=== PATIENT | male | born 1935 | race Caucasian/White ===

== ENCOUNTER 2019-01-19 06:58 | Day surgery (SDC) | payer BC, MEDICARE ==
[2019-01-19] MEDS ORDERED: Lactated Ringers 1,000 ML IV SCH (07:30)
[2019-01-19] MEDS ORDERED: Propofol 200 MG/20 ML SDV ONE (07:58)
[2019-01-19] MEDS ORDERED: fentaNYL 100 MCG/2 ML SDV ONE (07:58)
[2019-01-19] MEDS ORDERED: Midazolam 1 MG/ML 2 ML SDV ONE (07:58)
--- NOTE | 2019-01-19 10:44 | OR ---
DATE OF PROCEDURE: 01/19/2019 PREOPERATIVE DIAGNOSIS: History of colon polyps. POSTOPERATIVE DIAGNOSES: Diverticulosis, two small colon polyps, history of colon polyps. PROCEDURE PERFORMED: Colonoscopy to the cecum with biopsy resection of small hepatic flexure and small transverse colon polyps. SURGEON: Lino Espinoza MD ANESTHESIA: IV anesthesia with monitored anesthesia care. INDICATION: This 83-year-old white male is referred for a colonoscopy. He has a history of precancerous polyps. His last colonoscopic exam was done 3 years ago. I counseled him for the procedure, including risks and alternatives, and he gave his informed consent to proceed. DESCRIPTION OF PROCEDURE: The patient was placed in the left lateral decubitus position. IV anesthesia was administered by the Anesthesia Service. Time-out was held. A rectal exam was performed, which was unremarkable. The flexible video Olympus colonoscope was introduced through his anus, up his rectum, and out his colon all the way to the cecum. En route, we saw multiple left-sided diverticula. There was no bleeding or inflammation associated with any of them. Additionally, at the hepatic flexure, we saw a small polyp which was removed with a couple of bites of the biopsy forceps. Once the cecum was reached, the scope was slowly withdrawn examining the mucosa throughout. In the transverse colon, we saw another small polyp, which was removed with the biopsy forceps. No other neoplastic lesions were seen. The scope was brought back into the rectum, where it was retroflexed. The distal rectum appeared unremarkable except for some minor hemorrhoidal tissue. The scope was straightened and removed. He tolerated the procedure well. Lino Espinoza MD /[id number] MTDD
== END 2019-01-19 10:15 | disposition home or self-care (01) ==
LOC: JP.SDS 06:58
PROVIDERS: ATTEND Surgery
DX: Z12.11 Encounter for screening for malignant neoplasm of colon (principal); D12.3 Benign neoplasm of transverse colon; K57.30 Diverticulosis of large intestine without perforation or abscess without bleeding; K64.9 Unspecified hemorrhoids; J44.9 Chronic obstructive pulmonary disease, unspecified; N18.3 Chronic kidney disease, stage 3 (moderate); Z86.010 Personal history of colon polyps
CPT/HCPCS: 45380; 88305; J2250; J2704; J3010; J7120

== ENCOUNTER 2021-11-23 06:50 | Day surgery (SDC) | payer MEDICARE ==
[2021-11-23] MEDS ORDERED: Propofol 200 MG/20 ML SDV ONE (07:17)
[2021-11-23] MEDS ORDERED: fentaNYL 100 MCG/2 ML SDV ONE (07:17)
[2021-11-23 07:43] LABS: CORONAVIRUS COVID-19 NAA NEGATIVE (NEGATIVE)
[2021-11-23] MEDS: Sodium Chloride 0.9% 1,000 ML IV SCH (07:57)
== END 2021-11-23 10:02 | disposition home or self-care (01) ==
LOC: JP.SDS 06:50
PROVIDERS: ATTEND Family Medicine
DX: Z12.11 Encounter for screening for malignant neoplasm of colon (principal); E78.5 Hyperlipidemia, unspecified; I12.9 Hypertensive chronic kidney disease with stage 1 through stage 4 chronic kidney disease, or unspecified chronic kidney disease; N18.30 Chronic kidney disease, stage 3 unspecified; K21.9 Gastro-esophageal reflux disease without esophagitis; Z86.010 Personal history of colon polyps; Z79.899 Other long term (current) drug therapy; Z01.812 Encounter for preprocedural laboratory examination; Z20.822 Contact with and (suspected) exposure to COVID-19
CPT/HCPCS: 0241U; J2704; J3010; J7030

== ENCOUNTER 2022-03-06 07:00 | Day surgery (SDC) | payer MEDICARE ==
[2022-03-06] MEDS ORDERED: Propofol 200 MG/20 ML SDV ONE (07:14)
[2022-03-06] MEDS ORDERED: Lactated Ringers 1,000 ML IV SCH (08:00)
[2022-03-06 09:40] VITALS: PULSE 62
[2022-03-06 09:58] VITALS: BP 157/71
[2022-03-06] MEDS ORDERED: Calcium Carbonate 500 MG Tab.Chew PO ONE (10:00)
== END 2022-03-06 10:18 | disposition home or self-care (01) ==
LOC: JP.SDS 07:00
PROVIDERS: ATTEND Hospitalist
DX: D12.2 Benign neoplasm of ascending colon (principal); K57.30 Diverticulosis of large intestine without perforation or abscess without bleeding; I12.9 Hypertensive chronic kidney disease with stage 1 through stage 4 chronic kidney disease, or unspecified chronic kidney disease; N18.30 Chronic kidney disease, stage 3 unspecified; Z88.8 Allergy status to other drugs, medicaments and biological substances; Z88.6 Allergy status to analgesic agent; Z85.038 Personal history of other malignant neoplasm of large intestine; Z80.0 Family history of malignant neoplasm of digestive organs; Z79.810 Long term (current) use of selective estrogen receptor modulators (SERMs); Z79.83 Long term (current) use of bisphosphonates
CPT/HCPCS: A9270-GY; J2704; J7120

== ENCOUNTER 2024-01-22 21:14 | Inpatient (IN) | payer MEDICARE ==
[2024-01-22 22:14] LABS: BASOPHILS ABSOLUTE AUTO 0.04 K/uL (0.00-0.10); BASOPHILS PERCENT AUTO 0.3 % (0.1-1.3); HEMATOCRIT 37.4 % (38.4-49.7); HEMOGLOBIN 13.4 g/dL (12.9-16.9); IMMATURE GRAN ABSOLUTE AUTO 0.06 K/uL (0.00-0.23); IMMATURE GRAN PERCENT AUTO 0.4 % (0.0-0.7); LYMPHOCYTES ABSOLUTE AUTO 0.45 K/uL (0.8-3.3); LYMPHOCYTES PERCENT AUTO 3.1 % (11.4-47.7); MEAN CORPUSCULAR HEMOGLOBIN 32.4 pg (31.6-35.5); MEAN CORPUSCULAR HGB CONC 35.8 g/dL (31.6-35.5); MEAN CORPUSCULAR VOLUME 90.6 fL (81.4-99.0); MONOCYTES ABSOLUTE AUTO 1.21 K/uL (0.20-0.90); MONOCYTES PERCENT AUTO 8.4 % (3.3-12.6); NEUTROPHILS ABSOLUTE AUTO 12.67 K/uL (1.0-7.6); NEUTROPHILS PERCENT AUTO 87.8 % (40.0-78.1); PLATELET COUNT,PLT 154 K/uL (130-375); RED BLOOD CELL COUNT 4.13 M/uL (4.14-5.76); WHITE BLOOD CELL COUNT,WBC 14.4 K/uL (3.2-11.0)
[2024-01-22 22:32] LABS: C-REACTIVE PROTEIN 24.26 mg/dL (<0.50); CALCIUM 9.2 mg/dL (8.5-10.1); CREATININE 2.1 mg/dL (0.8-1.3); EST CRCL DRUG DOSING (CG) 26.07 mL/min; POTASSIUM,K 3.5 mmol/L (3.6-5.2)
[2024-01-22 22:36] LABS: ANION GAP 15.5 mmol/L (5.0-14.0)
[2024-01-22] MEDS: Sodium Chloride 0.9% 1,000 ML IV SCH (22:36)
[2024-01-22] MEDS: Acetaminophen 500 MG Tab PO ONE (22:36)
[2024-01-22 22:38] LABS: LACTIC ACID 1.1 mmol/L (0.4-2.0)
[2024-01-22 22:53] LABS: APPEARANCE,URINE CLEAR (CLEAR); BILIRUBIN,URINE NEGATIVE (NEGATIVE); COLOR,URINE YELLOW (YELLOW); GLUCOSE,URINE NEGATIVE (NEGATIVE); KETONES,URINE 15 mg/dL (NEGATIVE); LEUKOCYTE ESTERASE,URINE TRACE (NEGATIVE); NITRITE,URINE NEGATIVE (NEGATIVE); OCCULT BLOOD,URINE MODERATE (NEGATIVE); PH,URINE 5.5 (5.0-8.0); PROTEIN,URINE 30 mg/dL (NEGATIVE); UROBILINOGEN,URINE 0.2 EU/dL (0.2-1.0)
[2024-01-22 22:58] LABS: AMORPHOUS SEDIMENT,URINE NOT SEEN; BACTERIA,URINE FEW; EPITHELIAL CELLS,URINE RARE; MUCUS,URINE FEW; RBC,URINE 0-5 (0-5)
[2024-01-22] MEDS: cefTRIAXone 2 GM in Sodium Chloride 0.9% 50 ML IV ONE (22:58)
[2024-01-23] MEDS: Albuterol/Ipratropium 3.0-0.5 MG/3 ML Neb Soln NEB ONE (00:04)
[2024-01-23] MEDS ORDERED: Ondansetron 4 MG/2 ML SDV IV PRN (00:53)
[2024-01-23] MEDS ORDERED: LORazepam 2 MG/ML SDV IVPUSH PRN (00:53)
[2024-01-23] MEDS ORDERED: Melatonin 3 MG Tab PO PRN (00:53)
[2024-01-23] MEDS ORDERED: Ondansetron 4 MG Tab.DIS PO PRN (00:53)
[2024-01-23] MEDS ORDERED: Sennosides/Docusate Sodium 50-8.6 MG Tab PO PRN (00:53)
[2024-01-23] MEDS ORDERED: Magnesium Hydroxide 400 MG/5 ML Susp 30 ML Cup PO PRN (00:53)
[2024-01-23] MEDS: Albuterol/Ipratropium 3.0-0.5 MG/3 ML Neb Soln ONE (01:07)
[2024-01-23] MEDS: Sodium Chloride 0.9% 1,000 ML IV SCH (01:13)
[2024-01-23 05:37] LABS: HEMATOCRIT 36.5 % (38.4-49.7); HEMOGLOBIN 12.9 g/dL (12.9-16.9); MEAN CORPUSCULAR HEMOGLOBIN 31.9 pg (31.6-35.5); MEAN CORPUSCULAR HGB CONC 35.3 g/dL (31.6-35.5); MEAN CORPUSCULAR VOLUME 90.3 fL (81.4-99.0); RED BLOOD CELL COUNT 4.04 M/uL (4.14-5.76)
[2024-01-23 05:56] LABS: CALCIUM 8.6 mg/dL (8.5-10.1); EST CRCL DRUG DOSING (CG) 27.38 mL/min; POTASSIUM,K 3.2 mmol/L (3.6-5.2)
[2024-01-23 06:15] LABS: ANION GAP 15.2 mmol/L (5.0-14.0)
[2024-01-23] MEDS: Pantoprazole 40 MG Tab.CR PO SCH (08:29)
[2024-01-23] MEDS: Enoxaparin 30 MG/0.3 ML Syringe SUBCUT SCH (08:29)
[2024-01-23] MEDS: Lactobacillus Rhamnosus GG (Probiotic) Cap PO SCH (08:29)
[2024-01-23] MEDS: Potassium Chloride 20 MEQ Tab.ER PO ONE (08:33)
[2024-01-23] MEDS ORDERED: Calcium Carbonate 500 MG Tab.Chew PO PRN (08:39)
[2024-01-23] MEDS: Carbidopa/Levodopa 25-100 MG Tab PO SCH (09:30)
[2024-01-23] MEDS: Aspirin 81 MG Tab.Chew PO SCH (09:30)
[2024-01-23] MEDS ORDERED: Benzonatate 100 MG Cap PO PRN (10:19)
[2024-01-23] MEDS: Azithromycin 250 MG Tab PO SCH (11:33)
[2024-01-23] MEDS: Lidocaine 4% 1 each Patch TOP SCH (12:23)
[2024-01-23] MEDS: Carbidopa/Levodopa 25-100 MG Tab PO ONE (14:09)
[2024-01-23] MEDS: guaiFENesin/Dextromethorphan 100-10 MG/5 ML Soln 10 ML Cup PO PRN (17:03)
[2024-01-23] MEDS: Doxazosin 4 MG Tab PO SCH (21:08)
[2024-01-23] MEDS: cefTRIAXone 1 GM in Sodium Chloride 0.9% 50 ML IV SCH (21:17)
[2024-01-24 05:30] LABS: HEMATOCRIT 32.3 % (38.4-49.7); HEMOGLOBIN 11.3 g/dL (12.9-16.9); MEAN CORPUSCULAR HEMOGLOBIN 31.7 pg (31.6-35.5); MEAN CORPUSCULAR VOLUME 90.7 fL (81.4-99.0); RED BLOOD CELL COUNT 3.56 M/uL (4.14-5.76); WHITE BLOOD CELL COUNT,WBC 5.7 K/uL (3.2-11.0)
[2024-01-24 05:54] LABS: C-REACTIVE PROTEIN 16.35 mg/dL (<0.50); CALCIUM 7.8 mg/dL (8.5-10.1); CREATININE 1.4 mg/dL (0.8-1.3); EST CRCL DRUG DOSING (CG) 39.11 mL/min; POTASSIUM,K 3.3 mmol/L (3.6-5.2)
[2024-01-24 05:57] LABS: ANION GAP 12.3 mmol/L (5.0-14.0)
[2024-01-24] MEDS: Carbidopa/Levodopa 25-100 MG Tab PO SCH (09:02)
[2024-01-24] MEDS: Potassium Chloride 20 MEQ Tab.ER PO ONE (09:02)
[2024-01-24] MEDS: Acetylcysteine 20% 200 MG/ML 4 ML Nebulizer Soln SDV NEB SCH (10:29)
[2024-01-24] MEDS: Acetaminophen 325 MG Tab PO PRN (15:43)
[2024-01-25 05:56] LABS: ANION GAP 12.8 mmol/L (5.0-14.0); CALCIUM 8.3 mg/dL (8.5-10.1); CREATININE 1.3 mg/dL (0.8-1.3); EST CRCL DRUG DOSING (CG) 42.12 mL/min; POTASSIUM,K 3.8 mmol/L (3.6-5.2)
[2024-01-25] MEDS: Enoxaparin 40 MG/0.4 ML Syringe SUBCUT SCH (09:40)
== END 2024-01-25 12:30 | disposition home or self-care (01) | DRG 871 ==
LOC: JP.ED 21:14 → JP.MS 23:57
PROVIDERS: ADMIT Registered Nurse; ATTEND Internal Medicine
DX: A41.9 Sepsis, unspecified organism (principal); J18.9 Pneumonia, unspecified organism; N18.9 Chronic kidney disease, unspecified; J96.01 Acute respiratory failure with hypoxia; N17.9 Acute kidney failure, unspecified; F02.83 Dementia in other diseases classified elsewhere, unspecified severity, with mood disturbance; R65.20 Severe sepsis without septic shock; Z66 Do not resuscitate; K21.9 Gastro-esophageal reflux disease without esophagitis; Z88.6 Allergy status to analgesic agent; G89.29 Other chronic pain; M19.90 Unspecified osteoarthritis, unspecified site; E78.00 Pure hypercholesterolemia, unspecified; M54.9 Dorsalgia, unspecified; G20.A1 Parkinson's disease without dyskinesia, without mention of fluctuations; N18.30 Chronic kidney disease, stage 3 unspecified; E86.0 Dehydration; I12.9 Hypertensive chronic kidney disease with stage 1 through stage 4 chronic kidney disease, or unspecified chronic kidney disease; Z88.8 Allergy status to other drugs, medicaments and biological substances; Z85.9 Personal history of malignant neoplasm, unspecified; Z79.82 Long term (current) use of aspirin; Z98.49 Cataract extraction status, unspecified eye; Z79.899 Other long term (current) drug therapy; Z87.891 Personal history of nicotine dependence; Z86.010 Personal history of colon polyps
CPT/HCPCS: 36415; 80048; 81001; 82550; 83605; 84145; 85025; 86140; 87040 ×2; 96365; 99284; 99285; A9270; J0696; J3490; J7030; 85027; 87086; 94640; 94667; 94668; 97110-GP; 97161-GP; 97165-GO; 99222; 99232; 99238; J1650; J7620